=== PATIENT | female | born 1975 | race Caucasian/White ===

== ENCOUNTER 2024-03-28 11:41 | Inpatient (IN) | payer OTHER ==
[~2024-03-28] VITALS: Ht 182.9 cm; Wt 69.9 kg
[~2024-03-28 11:41] MED LIST: ARNUITY ELLIP100 MCG IH; ASMANEX110 MC1 IH; CLARINEX-D 11 BOTTLE PO; CLONAZEPAM1 MG PO; FLONASE16 GM NS; FLOVENT; LISINOPRIL10 MG PO; NEURONTIN PO; NEUROTIN PO; NORFLEX100MG; NORVASC10 MG PO; PERCOCET 5/3251 TAB PO; PERCOGESIC 3251 EACH PO; PREDISONE PO; PROTONIX40 MG PO; SINGULAIR10 MG PO; TOPROL XL25 M1 PO; [UNRECOGNIZED DRUG - CODE]
[2024-04-09] MEDS ORDERED: METHYLPREDNISOLONE SOD SUCC 125 MG VIAL IV ONE ×2 (10:00)
[2024-04-09] MEDS ORDERED: VANCOMYCIN HCL 1,000 MG VIAL IR ONE (10:00)
[2024-04-09] MEDS ORDERED: VANCOMYCIN HCL 1,000 MG VIAL IV ONE (10:00)
[2024-04-09] MEDS ORDERED: CEFAZOLIN SODIUM 1,000 MG VIAL IV ONE (10:00)
[2024-04-09] MEDS ORDERED: HEMOSTATIC MATRIX WITH THROMBIN KIT TOP ONE (10:30)
[2024-04-09] MEDS ORDERED: METHYLPREDNISOLONE ACETATE 80 MG/ML VIAL IU ONE (10:30)
[2024-04-09] MEDS ORDERED: 0.9 % SODIUM CHLORIDE 1,000 ML IV SCH (11:00)
[2024-04-09] MEDS ORDERED: PROMETHAZINE HCL 50 MG/ML AMPUL IM PRN (11:00)
[2024-04-09] MEDS ORDERED: ENALAPRILAT DIHYDRATE 1.25 MG/ML VIAL IV PRN (11:00)
[2024-04-09] MEDS ORDERED: PERCOCET 5-3251 EACH PO (11:03)
[2024-04-09] MEDS ORDERED: COLACE100 MG PO (11:04)
[2024-04-09] MEDS ORDERED: MEDROLPACK PO (11:04)
[2024-04-09] MEDS ORDERED: ONDANSETRON ODT8 MG PO (11:05)
[2024-04-09] MEDS ORDERED: MORPHINE SULFATE 4 MG/ML VIAL IV ONE ×2 (11:30→12:00)
[2024-04-09] MEDS ORDERED: MORPHINE SULFATE 4 MG/ML CARTRIDGE IV SCH (13:00)
[2024-04-09] MEDS ORDERED: DOCUSATE SODIUM 100MG CAP PO SCH (13:00)
[2024-04-09 16:00] VITALS: BP 115/80; O2SAT 95
[2024-04-09] MEDS ORDERED: METHYLPREDNISOLONE SOD SUCC 125 MG VIAL IV SCH (17:00)
[2024-04-09] MEDS ORDERED: FAMOtidine 20 MG TABLET PO SCH (17:00)
[2024-04-09] MEDS ORDERED: CEFAZOLIN SODIUM 1,000 MG in 0.9 % SODIUM CHLORIDE 50 ML IV SCH (17:00)
[2024-04-09] MEDS ORDERED: MONTELUKAST SODIUM 10 MG TABLET PO SCH (17:00)
[2024-04-09] MEDS ORDERED: ALBUTEROL SULFATE 3 ML/2.5 MG AMPUL.NEB IH SCH (17:00)
[2024-04-09] MEDS ORDERED: ACETAMINOPHEN 500 MG GEL..CAP PO SCH (20:00)
[2024-04-09] MEDS ORDERED: VANCOMYCIN HCL 1,000 MG VIAL IV SCH (21:00)
[2024-04-09] MEDS ORDERED: ZOLPIDEM TARTRATE 10 MG TABLET PO SCH (21:00)
[2024-04-09 21:47] VITALS: O2SAT 90
[2024-04-10] VITALS: O2SAT 96
[2024-04-10] MEDS ORDERED: SODIUM CHLORIDE 0.45 % 1,000 ML IV SCH
[2024-04-10 00:21] VITALS: BP 105/63; O2SAT 97
[2024-04-10 05:43] VITALS: O2SAT 100
[2024-04-10] MEDS ORDERED: OxyCODONE HCL 5 MG TABLET (ROXICODONE) PO PRN (06:01)
[2024-04-10 07:51] VITALS: BP 135/82; O2SAT 99
[2024-04-10] MEDS ORDERED: TAMSULOSIN HCL 0.4 MG CAP PO SCH (09:00)
[2024-04-10] MEDS ORDERED: LISINOPRIL 10 MG TABLET PO SCH (09:00)
[2024-04-10] MEDS ORDERED: AMLODIPINE BESYLATE 10 MG TABLET PO SCH (09:00)
[2024-04-10 10:02] VITALS: O2SAT 98
== END 2024-04-10 11:42 | disposition home or self-care (01) | DRG 518 ==
LOC: SURG 04-09 05:49 → O/R 04-09 05:49 → SURH 04-09 09:50 → SURG 04-09 15:46
PROVIDERS: ADMIT Orthopaedic Surgery Orthopaedic Surgery of the Spine; ATTEND Orthopaedic Surgery Orthopaedic Surgery of the Spine
PROC: 4A12X4Z Monitoring of Cardiac Electrical Activity, External Approach (ICD-10-PCS; 2024-04-09)
PROC: 0RR30JZ Replacement of Cervical Vertebral Disc with Synthetic Substitute, Open Approach (ICD-10-PCS; principal; 2024-04-09 09:50)
DX: M50.021 Cervical disc disorder at C4-C5 level with myelopathy (principal); I10 Essential (primary) hypertension